=== PATIENT | female | born 1945 | race Caucasian/White ===

== ENCOUNTER 2016-12-30 11:10 | Day surgery (SDC) | payer MEDICARE, BC ==
[~2016-12-30 11:10] MED LIST: COLACE100 MG PO; COMPAZINE10 M; CYCLOBENZAPRINE10 MG; FABB TABLET1 EACH PO; IBUPROFEN200 M3 PO; IRON1 TAB; MAGNESIUM CITR296 ML PO; POTASSIUM CHLO10 MEQ; TYLENOL EXTRA500 M1 PO; TYLENOL EXTRA500 MG; VITAMIN B-12; ZOLOFT50 MG
[2016-12-30 12:06] LABS: BASO % 0.4 % (0-2); EOS % 1.8 % (0-7); EOSINOPHIL ABSOLUTE COUNT 0.1 tho/cmm (0.0-0.7); HCT-HEMATOCRIT 39.6 % (34.0-49.0); HGB-HEMOGLOBIN 13.4 gm/dl (12.0-15.5); IMMATURE GRANULOCYTES ABSOLUTE 0.01 tho/cmm (0-0.03); IMMATURE GRANULOCYTES PERCENT 0.2 % (0-0.3); LYMPH % 24.9 % (20-45); LYMPH ABSOLUTE COUNT 1.3 tho/cmm (0.8-4.5); MCHC MEAN CORPUSCULAR HGB CONC 33.8 % (32.0-36.0); MCV (MEAN CELL VOLUME) 94.5 fl (82.0-96.0); MEAN PLATELET VOLUME 10.2 cmc (9.4-12.4); MONO % 8.6 % (0-12); MONOCYTE ABSOLUTE COUNT 0.4 tho/cmm (0.0-1.2); NEUTROPHIL ABSOLUTE COUNT 3.3 tho/cmm (1.6-8.0); NEUTROPHIL-AUTOMATED 3.3 tho/cmm (1.6-8.0); NEUTROPHILS % 64.1 % (40-80); PLATELET COUNT 265 tho/cmm (150-450); RED BLOOD COUNT 4.19 mil/cmm (4.00-5.20); RED CELL DISTRIBUTION WIDTH 13.3 % (12.4-16.4); WHITE BLOOD COUNT 5.1 tho/cmm (4.0-10.0)
[2016-12-30 12:12] LABS: INR 0.9 INR (0.9-1.1); PROTHROMBIN TIME 10.2 SECONDS (9.0-13.6)
[2016-12-30 13:17] LABS: CSF APPEARANCE CLEAR (CLEAR); CSF COLOR COLORLESS (COLORLESS); CSF TUBE NUMBER CSF TUBE 3
[2016-12-30 13:26] LABS: CSF GLUCOSE 52 mg/dl (40-75)
[2016-12-30 13:52] LABS: CSF BASOPHILS 0 % (0); CSF EOSINOPHILS 0 % (0); CSF LYMPHOCYTES 86 % (40-80); CSF MONOCYTES 14 % (15-45); CSF NEUTROPHILS 0 % (0-6)
[2016-12-30 13:56] LABS: CSF WBC CT 19 cmm (0-10)
[2016-12-30 14:05] LABS: CSF RBC CT 1 cmm (0)
== END 2016-12-30 15:10 ==
LOC: RADSP 11:10 → SHSC 11:11
PROVIDERS: Psychiatry & Neurology Neurology; Radiology Diagnostic Radiology
PROC: 0S923ZX Drainage of Lumbar Vertebral Disc, Percutaneous Approach, Diagnostic (ICD-10-PCS; principal; 2016-12-30)
DX: R20.9 Unspecified disturbances of skin sensation (principal); H93.12 Tinnitus, left ear; Z80.0 Family history of malignant neoplasm of digestive organs; Z98.890 Other specified postprocedural states; Z87.891 Personal history of nicotine dependence; Z79.899 Other long term (current) drug therapy
CPT/HCPCS: J7030